=== PATIENT | male | born 1950 | race Caucasian/White ===

== ENCOUNTER 2021-07-11 11:02 | Outpatient (AMB) | payer MEDICARE, SELFPAY ==
[2021-07-11 11:27] VITALS: BP 154/81; PULSE 67; RESP 18; TEMP 36.7; BMI 41.6
--- NOTE | 2021-07-11 11:27 | UROVISIT ---
Intake Intake Visit Reasons: Uro Cystocopy in office Allergy Allergies No Known Allergies Allergy (Verified 06/10/21 13:18) Nursing Documentation Social History Living Situation History Housing: House Tobacco History Smoking Status: Never smoker Alcohol History Alcohol Intake: Never Urology Clinic Office Visit Office Visit Date of visit:: July 11, 2021 11:02 Allergies & Home Medications: Allergies No Known Allergies Allergy (Verified 06/10/21 13:18) Visit: Reason for visit: [] Office Visit findings: []
--- NOTE | 2021-07-11 11:27 | U.OPVIS1 ---
Intake Vital Signs 07/11/21 11:27 Height 1.85 m Weight 143.108 kg BMI 41.6 BP 154/81 H Blood Pressure Location Right Upper Arm Position Sitting Respiration 18 Pulse 67 Pulse Source Monitor Temp 98.1 F Temp Source Temporal Artery Scan Intake Visit Reasons: Uro Cystocopy in office Allergy Allergies No Known Allergies Allergy (Verified 07/11/21 11:28) Home Meds Medication Reconciliation bupropion HCl 300 mg 24 hr tablet, extended release 300 mg PO QAM 07/04/19 [History Confirmed 07/11/21] metoprolol succinate 25 mg tablet,extended release 24 hr 25 mg PO QDAY 07/04/19 [History Confirmed 07/11/21] sacubitril 49 mg-valsartan 51 mg tablet (Entresto) 1 tab PO QDAY 04/19/20 [History Confirmed 07/11/21] doxycycline hyclate 100 mg tablet 100 mg PO BID 07/11/21 [History Confirmed 07/11/21] oxybutynin chloride 10 mg tablet,extended release 24 hr 10 mg PO QDAY 07/11/21 [History Confirmed 07/11/21] topiramate 25 mg sprinkle capsule 25 mg PO BID 07/11/21 [History Confirmed 07/11/21] triamterene 37.5 mg-hydrochlorothiazide 25 mg tablet 1 tab PO QDAY 07/11/21 [History Confirmed 07/11/21] Nurse Note: UMER MALAGON- PATIENT TO BE SCHEDULED FOR STONE REMOVAL. PATIENT TO HAVE CARDIAC CLEARANCE. PATIENT TO BE SCHEDULED FOR PROSTATE ULTRASOUND Office Procedures Uro Cystoscopy in office Office Procedure Informed consent given: Yes Consent signed: Yes Time out staff in room: Yes IMMEDIATELY PRIOR TO START OF PROCEDURE: ALL MEMBERS of the procedural team are in attendance and actively involved together in the TIME-OUT and verified as applies to the patient:: Correct Patient Identity, Correct Site, Consent Signed and Accurate, Team Agrees on Procedure, Patient has completed pre-procedure preparations, Antibiotic prophylaxis, Pre-procedure medications, Review of allergies and potential blood loss, Safety Precautions are in place based on patient history, Correct Patient Positioning, Procedural site marked by appropriate provider, Procedural site marking is visible after prep and draping, Relevant images and results are properly labeled and displayed, Reqd blood products, implants, devices and necessary equip available, Specimen container(s) and lab req(s) are available & labeled properly., H&P, assessments, and other pertinent documents are available and Antibiotics are administered, antibiotic irrigation fluids prepared. Time out verified: Yes Time out date: 07/11/21 Time out time: 12:24 Sterilizing agent: betadine Type of anesthesia: local Type of scope: flexible Tumor present: No Stone present: Yes Patient tolerated procedure: well Complications: No Visual taken: No Charges for this visit: My Supervising Practitioner for this visit is:: Kelly Marcial Cystoscopy: Yes Uro Level of Care Nursing/Assessment/Reassessment Patient Status: Established Patient Nursing Assessment/Reassessment: Update [facility] data in EMR, Vital Signs and Medication Reconciliation Coordination of Care: Comp Pt/Fam Ed for care and Consent,records obtained Miscellaneous Interventions: Phys Asssit w/procedure Established Patient Point Assignment: 80 Procedure IM Injection: Yes Transrectal Ultrasound: No Office Meds lorazepam Performing Provider: Kelly Marcial MD Administered by: MARCELO Meyers on 07/11/21 11:50 Dose Route Admin Location Lot Number Expiration Date [facility] Pile Driver 1 mg PO gentamicin Performing Provider: Kelly Marcial MD Administered by: MARCELO Meyers on 07/11/21 11:50 Dose Route Admin Location Lot Number Expiration Date [facility] Pile Driver 120 mg IM RIGHT GLUT lidocaine HCl Performing Provider: Kelly Marcial MD Administered by: MARCELO Meyers on 07/11/21 11:50 Dose Route Admin Location Lot Number Expiration Date 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 Patient came for follow-up he was recommended cystoscopic examination procedure and complications were discussed with patient in great detail informed consent is obtained CT scan/Ultrasound:: CAT scan had revealed a 5.8 cm prostatic calcification no kidney tumor was identified Procedure Description:: The patient received 120 mg Gentamicin IM pre-op prophylaxis. Informed consent was obtained for the procedure. The patient was prepped in a sterile manner. Local anesthetic was placed into the urethra. Cystoscopy was then performed. The urethra had no intrinsic lesions up to the prostatic fossa. There was [bilobar/] prostatic enlargement there is a large stone in the prostatic urethra Examination of the bladder revealed no evidence of cancerous lesions, papillary or polyp type lesions or stones. There was [mild/moderate/] trabeculation Both ureters were putting out clear urine. The bladder was completely drained and the scope removed. The patient tolerated the procedure well. Post-op instructions were given. The patient is to call the office should any problems occur. Schedule patient for cystoscopic examination laser stone fragmentation at the hospital procedure and complications were discussed with the patient in great detail informed consent is obtained
[2021-07-16 10:11] LABS: Bilirubin,Urine Clinitek Negative (Negative); Blood,Urine Clinitek Negative (Negative); Glucose, Urine Clinitek Negative (Negative); Ketones,Urine Clinitek Negative (Negative); Leukocyte Esterase,Urine Clin Negative (Negative); Nitrite,Urine Clinitek Negative (Negative); PH,Urine Clinitek 5.5 (5.0-7.0); Protein,Urine Clinitek Negative (Neg - Trace); Specific Gravity,Urine Clin 1.025 (1.001-1.030); Urobilinogen,Urine Clinitek 0.2 mg/dL (0.0-1.0)
== END 2021-07-11 12:40 | disposition home or self-care (01) ==
LOC: HODURO 11:02
PROVIDERS: Visit Provider Urology